=== PATIENT | female | born 1930 | race Caucasian/White ===

== ENCOUNTER 2019-04-27 22:12 | Observation (INO) | payer MEDICARE, OTHER ==
[~2019-04-27] VITALS: Ht 157.5 cm; Wt 55.5 kg
--- NOTE | ~2019-04-27 | HEMODYNAMI ---
PATIENT:ALPHONSO LEMUS MEDICAL RECORD: [id number] : [birth year] [facility] [id number] ADMISSION DATE: 04/28/19 Generatedon:04/28/201910:54 Patient name: ALPHONSO LEMUS Patient #: [id number] : 1930 Date of study: 04/28/2019 Page: Of Hemodynamic Procedure Report Patient Data Patient Demographics Procedure consent was obtained First Name: ALPHONSO Gender: Female Last Name: MARIAH : 1930 Patient #: [id number] Age: 88 year(s) Race: SSN: [id number] Additional ID: [id number] Contact details Address: [address] State: [place] City: [place] Zip code: [address] Past Medical History Allergies: No known allergies Admission Admission Data Admission Date: 04/28/2019 Admission Time: 0:13 Arrival Date: 04/28/2019 Arrival Time: 0:13 Admit Source: Other Insurance Payor: Medicare Room #: D.2115 Height (in.): 61.97 BSA: 1.55 (m2) Height (cm.): 157.4 BMI: 22.4 (kg/m2) Weight (lbs.): 122.36 Weight (kg.): 55.5 Lab Results Lab Result Date: 04/28/2019 Lab Result Time: 0:00 Biochemistry Name Units Result Min Max BUN mg/dl 24 --(----)-* 7 18 Creatinine mg/dl 0.9 --(-*--)-- 0.6 1.3 CBC Name Units Result Min Max Hemoglobin g/dl 11.4 *-(----)-- 13.5 17.5 Procedure Procedure Types Cath Procedure Diagnostic Procedure LHC LHC w/Coronaries FFR/IVUS FFR Initial FFR Additional Procedure Description Procedure Date Procedure Date: 04/28/2019 Procedure Start Time: 10:37 Procedure End Time: 10:51 Procedure Staff Name Function Sam Rice RT Scrub Agus Castillo MD Performing Physician Sebastian Connors RT Monitor Fercho Cao RN Nurse María Booth RT Scrub Procedure Data Cath Procedure Fluoroscopy Diagnostic fluoroscopy Total fluoroscopy Time: 3.1 time: 3.1 min min Diagnostic fluoroscopy Total fluoroscopy dose: 163 dose: 163 mGy mGy Contrast Material Contrast Material Type Amount (ml) Isovue 300 49 Entry Location Entry Primary Successful Side Size Upsize Upsize Entry Closure Lozano ccessful Closure Location (Fr) 1 (Fr) 2 (Fr) Remarks Device Remarks Radial Right 6 Fr Mechanical artery Short Compression Estimated blood loss: 5 ml Diagnostic catheters Device Type Used For End Catheter Placement DIAGNOSTIC [place] 110cm 5 Procedure Fr catheter ([id number]) Procedure Complications No complications Procedure Medications Medication Administration Route Dosage 0.9% NaCl I.V. 100 ml/hr Oxygen etCO2 Nasal cannula 2 l/min Heparin Flush Bag added to field 2 bags (1000units/500ml NS) Lidocaine 2% added to field 20 Radial Cocktail added to field 1 syringe (Verapamil 2mg/Nitro 400mcg/Heparin 1500units) Versed I.V. 1 mg Fentanyl I.V. 50 mcg Radial Cocktail I.A. 1 syringe (Verapamil 2mg/Nitro 400mcg/Heparin 1500units) Hemodynamics Rest BSA: 1.55 (m2) HGB: 11.4 (g/dl) O2 Consumption: Estimated: 134.75 (ml/min) O2 Co nsumption indexed: Estimated:86.94 (ml/min/m) Heart Rate: 67 (bpm) Snapshots Pre Cath Intra NCS Post Cath Vital Signs Time Heart Resp SPO2 etCO2 NIBP Rhythm Pain Sedation Rate (ipm) (%) (mmHg) (mmHg) Status Level (bpm) 10:34:18 60 14 100 34.5 111/52(73) NSR 0 (11) 10(A) , No pain 10:36:54 69 13 100 0 97/52(78) NSR 0 (11) 10(A) , No pain 10:41:04 67 12 96 0 75/39(63) NSR 0 (11) 9(A) , No pain 10:45:03 60 15 100 39.1 85/41(67) NSR 0 (11) 9(A) , No pain 10:50:02 60 13 100 24.8 123/54(82) NSR 0 (11) 9(A) , No pain Medications Time Medication Route Dose Verified Delivered Reason Notes Effectiveness by by 10:30:11 0.9% NaCl I.V. 100 Buffie Buffie Per ml/hr Barb Day RN physician 10:31:44 Oxygen etCO2 2 l/min Fercho Fercho for low 02 Nasal Lorigan Lorigan sats cannula RN RN 10:31:58 Heparin Flush added 2 bags Fercho Fercho used for Bag to Lorigan Lorigan procedure (1000units/500ml field RN RN NS) 10:32:07 Lidocaine 2% added 20ml Fercho Fercho for local to vial Lorigan Lorigan anesthetic field RN RN 10:32:24 Radial Cocktail added 1 Fercho Fercho used for (Verapamil to syringe Lorigan Lorigan procedure 2mg/Nitro field RN RN 400mcg/Hepari 10:38:03 Versed I.V. 1 mg Fercho Fercho for sedation Kiley Cao RN RN 10:38:31 Fentanyl I.V. 50 mcg Fercho Fercho for sedation Kiley Cao RN RN 10:38:47 Radial Cocktail I.A. 1 Fercho Agus for (Verapamil syringe Kiley Castillo MD vasodilation 2mg/Nitro RN 400mcg/Heparin 1500units) Procedure Log Time Note 9:17:07 Informed consent obtained and on chart 9:18:38 Admit Source: Other 9:18:46 Arrival Date: 04/28/2019 12:13:00 AM 9:18:56 Insurance Payor : Medicare 9:19:15 Patient Height : 61.97 inches 9:19:28 Patient Weight : 122.36 lbs 9:19:55 Lab Result : Hemoglobin 11.4 g/dl 9:19:55 Lab Result : Creatinine 0.9 mg/dl 9:19:55 Lab Result : BUN 24 mg/dl 9:20:55 ACC Patient presents with Unstable Angina CCS Anginal Class 4--Inability to carry out any physical activity w/o angina. Angina may occur at rest. 9:20:58 ACCPatient has been prescribed/administered the following anti-anginal medication within the last 2 weeks: Long-Acting Nitrates 9:21:03 Procedure Status Urgent Heart Cath (IP). 9:21:48 Sam Rice RT(R) sent for patient. Start room use. 9:21:49 Time tracking: Regular hours (M-F 7:00 - 5:00) 9:22:06 Plan of Care:Hemodynamics will remain stable., Cardiac rhythm will remain stable., Comfort level will be maintained., Respiratory function will remain adequate., Patient/ family verbilizes understanding of procedure., Procedure tolerated without complication., Recovers from procedure without complications.. 10:17:38 Patient received from Med II to CCL 1 Alert and oriented. Tansferred to table in Supine position. 10:17:39 Warm blankets applied, and cachorro hugger turned on for patient comfort. 10:17:40 Correct patient and procedure confirmed by team. 10:17:41 ECG and BP/O2 sat monitors applied to patient. 10:17:51 H&P Date Dictated: 04/28/2019 Within 30 days and on chart.. 10:17:52 Pre-procedure instructions explained to patient. 10:17:53 Pre-op teaching completed and patient verbalized understanding. 10:17:58 Family in patients room. 10:18:00 Patient NPO since Midnight. 10:18:09 Patient allergic to No known allergies 10:18:14 Is the patient allergic to Iodine/contrast media? No. 10:18:17 Is patient on blood thinner?No 10:18:18 Patient diabetic? No. 10:18:23 Previous problem with sedation/anesthesia? No ? 10:18:25 Snore? Yes 10:18:26 Sleep apnea? No 10:18:27 Deviated septum? No 10:18:28 Sticks out tongue? Yes 10:18:28 Opens mouth fully? Yes 10:18:30 Airway obstruction? No ? 10:18:35 Dentures? Yes top in bottom out 10:30:11 0.9% NaCl 100 ml/hr I.V. was administered by Ryan Day RN; Per physician; 10:31:44 Oxygen 2 l/min etCO2 Nasal cannula was administered by Fercho Cao RN; for low 02 sats; 10:31:58 Heparin Flush Bag (1000units/500ml NS) 2 bags added to field was administered by Fercho Cao RN; used for procedure; 10:32:07 Lidocaine 2% 20ml vial added to field was administered by Fercho Cao RN; for local anesthetic; 10:32:24 Radial Cocktail (Verapamil 2mg/Nitro 400mcg/Heparin 1500units) 1 syringe added to field was administered by Fercho Cao RN; used for procedure; 10:32:51 Pre procedure: right posterior tibial pulse 1+ Palpable, but thready & weak; easily obliterated 10:33:40 Baseline sample Acquired. 10:33:44 Rhythm: sinus rhythm 10:35:41 Vital chart was started 10:36:11 Baseline sample Acquired. 10:36:11 Full Disclosure recording started 10:36:16 Patient pain scale 0/10 ?. 10:36:21 IV patent on arrival in left wrist with 0.9% NaCl at [facility]. 10:36:23 Lab results completed and on chart. 10:36:26 Right Radial & Right Groin area was prepped with chlora-prep and draped in sterile fashion 10:36:27 Alarms reviewed by R. N. 10:36:28 Sharps counted by scrub and verified by R.N. 10:36:30 Use device set Radial Dx or PCI 10:36:31 ACIST Syringe (36651) opened to sterile field. 10:36:31 Medline Cath Pack ([id number]) opened to sterile field. 10:36:31 Bag Decanter (2002) opened to sterile field. 10:36:32 ACIST Hand Control (44486) opened to sterile field. 10:36:32 ACIST Manifold (12917) opened to sterile field. 10:36:32 Tegaderm 4 x 4 (1626W) opened to sterile field. 10:36:33 MBrace Wrist Support ([id number]) opened to sterile field. 10:36:36 SHEATH 6FR RAIN (6583457) opened to sterile field. 10:36:36 EMERALD Guide Wire (344-410) opened to sterile field. 10:36:42 Physician arrived 10:36:42 --------ALL STOP TIME OUT------ 10:36:43 Final Timeout: patient, procedure, and site verified with staff and physician. All members of the team are in agreement. 10:36:45 Right Radial & Right Groin site verified by team. 10:36:48 Fire Safety Assessment: A--An alcohol-based skin anteseptic being used preoperatively., C--Open oxygen or nitrous oxide is being used., D--An ESU, laser, or fiber-optic light is being used. 10:37:12 Physical assessment completed. ASA score P 2 - A patient with mild systemic disease as per Agus Castillo MD. 10:37:16 2) 60-89 Mildly reduced kidney function, and other findings (as for stage 1) point to kidney disease. 10:37:20 Maximum allowable contrast dose (3.7 X eGFR X 0.75)172 ml. 10:37:23 Sedation plan: IV Moderate Sedation Medication:Versed, Fentanyl 10:37:26 Procedure started. 10:37:31 Local anesthetic to right radial artery with Lidocaine 2% by Agus Castillo MD.INITIAL ACCESS ONLY 10:37:40 A 6 Fr Short sheath was inserted into the Right Radial artery 10:37:47 Zero performed for pressure channel P1 10:38:03 Versed 1 mg I.V. was administered by Fercho Cao RN; for sedation; 10:38:07 A DIAGNOSTIC [place] 110cm 5 Fr catheter (581918) was advanced over the wire and used for Procedure. 10:38:31 Fentanyl 50 mcg I.V. was administered by Fercho Cao RN; for sedation; 10:38:47 Radial Cocktail (Verapamil 2mg/Nitro 400mcg/Heparin 1500units) 1 syringe I.A. was administered by Agus Castillo MD; for vasodilation; 10:39:42 LV gram done using SERRANO 10:39:44 Injector settings: Ml/sec: 5, Volume: 15, 10:39:45 LV hemodynamics recorded. 10:39:49 EF : 55 % 10:39:54 LCA angiography performed. 10:40:40 RCA angiography performed. 10:41:33 Catheter removed. 10:41:49 Cantril Verrata Plus pressure wire (10657N) opened to sterile field. 10:41:49 INFLATOR Merit BasixCompak (ZQ7818) opened to sterile field. 10:41:50 GUIDE 6FR XBLAD 3.5 catheter ([id number]) opened to sterile field. 10:42:07 ACCDominant side:Co-Dominant 10:42:19 6 Fr xblad 3.5 guide catheter was inserted over the wire 10:42:22 FFR/IFR wire advanced. 10:44:46 Wire advanced across lesion. 10:45:14 pLAD lesion measured at 0.97 with IFR 10:45:25 Wire redirected to cx. 10:46:56 pCirc lesion measured at 1.04 with IFR 10:48:29 Wire removed. 10:48:30 Guide catheter removed. 10:48:36 ZEPHYR REGULAR TR BAND (857929) opened to sterile field. 10:48:43 Sheath removed intact; hemostasis achieved with Mechanical Compression to the Right Radial artery. 10:48:44 Procedure ended.(Physican Out) 10:49:58 Fluoroscopy time 03.10 minutes. 10:50:01 Fluoroscopy dose: 163 mGy 10:50:01 Flurop Dose total: 163 10:50:06 Dose Area Product 7349 mGy/cm. 10:50:10 Contrast amount:Isovue 300 49ml. 10:50:12 Maximum allowable dose exceeded? No. 10:50:13 Sharps counted by scrub and verified by R.N. 10:50:15 [place] band inflated with 12cc of air. 10:50:16 Insertion/operative site no bleeding no hematoma. 10:50:39 Post right radial artery:stable, soft, clean and dry 10:50:40 Post Procedure Pulses reassessed and unchanged 10:50:44 Post-procedure physical assessment completed. ASA score P 2 - A patient with mild systemic disease as per Agus Castillo MD. 10:50:46 Post procedure rhythm: unchanged. 10:50:49 Estimated blood loss: 5 ml 10:50:50 Post procedure instruction explained to patient.Patient verbalizes understanding. 10:50:50 Patient needs reinforcement of post procedure teaching. 10:51:00 Procedure type changed to Cath procedure, Diagnostic procedure, LHC, LHC w/Coronaries, FFR/IVUS, FFR Initial, FFR Additional 10:51:17 Procedure and supply charges have been captured, reviewed, submitted and are correct. 10:51:20 Procedure Complication : No complications 10:51:22 Vital chart was stopped 10:51:22 See physician's report for complete and final results. 10:51:23 Report given to Pre/Post Procedure Room. 10:51:26 Patient transfered to Pre/Post Procedure Room with Stretcher. 10:51:29 Procedure ended. 10:51:29 Full Disclosure recording stopped 10:52:28 End room use (Document Last) Device Usage Item Name Manufacture Quantity Catalog Hospital Part Current Mini mal Lot# / Number Charge Number Stock Stock Serial# Code ACIST Acist 1 08096 115757 519227 [id number] 20 Syringe Medical (21655) Systems Inc Medline Medline 1 [id number] [id number] 23003 [id number] 5 Cath Pack (GMMC49223) Bag Microtek 1 2001S 574598 83651 303119 5 Decanter Medical Inc. (2001S) ACIST Hand Acist 1 59064 480050 455622 788654 5 Control Medical (49725) Systems Inc ACIST Acist 1 03980 771092 784230 103421 5 Manifold Medical (55888) Systems Inc Tegaderm 4 3M 1 1626W 294315 613403 999227 5 x 4 (1626W) MBrace Advanced 1 140-0250-00 667488 31379 889073 5 Wrist Vascular Support Dynamics (762080961) SHEATH 6FR Cardinal 1 9977985 905585 0701368 769566 5 [facility] Health (3537920) EMERALD Cardinal 1 502455 447225 850538 209824 5 Guide Wire Health (502-990) DIAGNOSTIC Terumo 1 40-6503 364456 565497 248041 5 [place] 110cm 5 Fr catheter (575897) Cantril Cantril 1 97529R 537496 [id number] 551084 5 Verrata Plus pressure wire (15837J) INFLATOR Merit 1 RD0910 545657 222010 404124 15 [facility] BasixCompak (RD6270) GUIDE 6FR Cardinal 1 [id number] 800840 300810 871815 10 XBLAD 3.5 Health catheter (38842933) ZEPHYR Cardinal 1 894425 323848 1026188 919211 5 REGULAR TR Health BAND (793439) Signature Audit [place] Stage Time Signature Unsigned Intra-Procedure 04/28/2019 Sebastian Connors 10:54:46 AM RT(R) Signatures Performing Physician : Signature : Agus Castillo MD Date : Time : Monitor : Sebastian Connors RT Signature : Date : Time : Nurse : Fercho Lorigan Signature : RN Date : Time : [address] [place] [address]
[2019-04-27 22:59] LABS: BASOPHILS 0.3 % (0-2); EOSINOPHILS 17.6 % (0-7); HEMATOCRIT 33.4 % (36.0-48.0); HEMOGLOBIN 11.4 g/dL (12-16); IMMATURE GRANULOCYTES 0.1 % (0-5); LYMPHOCYTES 25.2 % (15-50); MCH 28.2 pg (26.0-34.0); MCHC 34.1 g/dL (31.0-37.0); MCV 82.7 fL (80.0-100.0); MEAN PLATELET VOLUME 10.5 fL (7.4-10.4); MONOCYTES 9.9 % (2-11); NEUTROPHILS 46.9 % (40-80); PLATELET COUNT 246 10x3/uL (130-400); RBC 4.04 10x6/uL (4.00-5.40); RDW 14.7 % (11.5-14.5); WBC 10.1 10x3/uL (4.8-10.8)
[2019-04-27 23:11] LABS: INR 0.99 (0.85-1.17); PROTIME 12.6 SECONDS (11.6-15.0)
[2019-04-27 23:15] LABS: ALBUMIN 3.7 g/dL (3.4-5.0); ALKALINE PHOSPHATASE 96 U/L (46-116); ALT (SGPT) 24 U/L (10-68); BILIRUBIN - TOTAL 0.31 mg/dL (0.2-1.3); CALC OSMOLALITY 284 mosm/kg (275-300); CALCIUM 8.8 mg/dL (8.5-10.1); CARBON DIOXIDE 29.6 mmol/L (21.0-32.0); CHLORIDE - SERUM 102 mmol/L (98-107); CREATININE - SERUM 0.9 mg/dL (0.6-1.3); GLUCOSE 107 mg/dL (74-106); POTASSIUM - SERUM 3.8 mmol/L (3.5-5.1); PROTEIN - SERUM 7.4 g/dL (6.4-8.2); SODIUM 141 mmol/L (136-145); UREA NITROGEN 24 mg/dL (7-18); eGFR NON AFRICAN AMERICAN 62 mL/min (90-120)
[2019-04-27 23:25] LABS: CREATINE KINASE 175 UL (21-215); MAGNESIUM - SERUM 1.8 mg/dL (1.8-2.4); TROPONIN-I < 0.017 ng/mL (0.000-0.060)
[2019-04-27 23:46] LABS: APPEARANCE CLEAR (CLEAR); BILIRUBIN NEGATIVE (NEGATIVE); COLOR STRAW (YELLOW); GLUCOSE NEGATIVE (NEGATIVE); KETONE NEGATIVE (NEGATIVE); NITRITE NEGATIVE (NEGATIVE); PROTEIN NEGATIVE (NEGATIVE); SPECIFIC GRAVITY 1.005 (1.005-1.020); UROBILINOGEN NORMAL (NORMAL)
[2019-04-27 23:49] LABS: BACTERIA FEW /hpf (NONE SEEN); EPITHELIAL CELLS 0-5 /hpf (0-5); RED CELLS - URINE NONE SEEN /hpf (0-5); WHITE CELLS - URINE 0-5 /hpf (0-5)
[2019-04-28] MEDS ORDERED: BAYER CHEWABLE81 MG PO (01:46)
[2019-04-28 01:55] VITALS: BP 170/83; BMI 22.4
[2019-04-28] MEDS ORDERED: NORVASC5 MG PO (02:04)
[2019-04-28 04:00] VITALS: BP 137/64
[2019-04-28 07:11] LABS: CKMB 3.7 U/L (0.0-3.6); CREATINE KINASE 172 UL (21-215)
[2019-04-28 07:12] LABS: TROPONIN-I < 0.017 ng/mL (0.000-0.060)
[2019-04-28 08:20] VITALS: BP 147/73
--- NOTE | 2019-04-28 10:53 | HP ---
PATIENT: ALPHONSO CLAYTON MEDICAL RECORD: [id number] ACCOUNT: [id number] LOCATION:[address] : [birth year] ADMISSION DATE: 04/28/19 PCP: CONSTANCE BOYD MD HISTORY AND PHYSICAL EXAMINATION DIAGNOSES: 1. Unstable angina. 2. Hypertension. HISTORY OF PRESENT ILLNESS: Mrs. Clayton has no previous cardiac history. Her has extensive coronary artery disease. She has been having chest pain over the past few days. She has been taking multiple of his sublingual nitro as it does relieve the pain; however, comes back. She has class IV pain at rest. She presented to the [facility] after multiple sublingual nitro, did not relieve the pain. She is on a nitropatch. She does have pain relief at this time; however, she has continued to have recurrences of it. She is on Norvasc at home, now on a nitro patch. She is anxious and she is tachycardic and hypertensive. She is usually with good blood pressure control with Norvasc. Her EKG is with no acute ST-T abnormalities. PHYSICAL EXAMINATION: CONSTITUTIONAL/GENERAL APPEARANCE: Well nourished, well developed, appears stated age. EYES: Lids and conjunctivae noninjected. No discharge. No pallor. ENT: Lips within normal limit. No cyanosis. No pallor. NECK: Carotid arteries, bilateral normal upstroke. No bruits. No thrills. No jugular venous pressure or distention. CERVICAL LYMPH NODES: Nontender. Nonenlarged. THYROID: Not enlarged. No nodules. CARDIOVASCULAR: Precordial exam, nondisplaced. No heaves or pericardial thrills. Rate and rhythm, regular. Heart sounds, normal S1, normal S2. No S3, no gallop, no rub. Systolic murmur, not heard. Diastolic murmur, not heard. RESPIRATORY: Respiratory effort, unlabored. Normal curvature. No thoracic deformity. No chest wall tenderness. Percussion, resonant. Auscultation, clear. No wheezes, no rales, no rhonchi. ABDOMEN: Soft, nondistended, nontender. No abdominal pain, no vomiting and normal appetite. MUSCULOSKELETAL: No joint tenderness, normal gait, normal tone. SKIN: Warm and dry. OVERALL IMPRESSION: Typical anginal symptomatology class IV pattern with pain at rest, relieved with sublingual nitro with recurrences of it. At this time, we will beta blockade her with Lopressor for maximal medical therapy with long-acting nitrates, calcium channel edie, and beta edie if we achieve optimal heart rate and blood pressure status, but she continues to have chest discomfort, would consider coronary angiography. If she becomes pain free and remains pain free, we will consider risk stratification with stress testing and Cardiolite imaging. TRANSINT:[id number] Voice Confirmation ID: [id number] DOCUMENT ID: [id number] HISTORY AND PHYSICAL [id number] ALPHONSO CLAYTON JEFFREY MD at 1053 CC: [id number] DICTATION DATE: 04/28/19 0233 PLASTIC SURGERY NURSE: 04/28/19 0307 ADM IN [facility] [address] [place] [address]
[2019-04-28] MEDS ORDERED: METOPROLOL TART50 MG PO (11:18)
[2019-04-28 12:27] VITALS: Ht 157.5 cm; Wt 55.5 kg
--- NOTE | 2019-05-05 14:31 | OP ---
PATIENT NAME: ALPHONSO LEMUS MEDICAL RECORD: [id number] :[birth year] LOCATION:[facility] ADMISSION DATE:04/28/19 SURGEON: ESA DELA CRUZ MD DATE OF OPERATION: 04/28/2019 PROCEDURES: 1. Left heart catheterization. 2. Selective coronary angiography. 3. Left ventriculogram. 4. IFR left circumflex. 5. IFR LAD. INDICATION: Angina and coronary artery disease. PROCEDURE IN DETAIL: After informed consent was obtained and after a detailed description of the risks, benefits as well as alternative therapies, the patient elected to proceed with angiogram and heart catheterization. The right radial area was prepped and draped in normal sterile fashion. Right radial artery was cannulated via modified Seldinger technique with placement of 6-Arabic sheath. All catheters exchanged through this sheath. FINDINGS: Left ventriculogram was performed in a standard 30-degree SERRANO view, reveals good cardiac wall motion, ejection fraction is 60%. SELECTIVE CORONARY ANGIOGRAPHY: 1. Left main is with no significant angiographic disease. 2. Left anterior descending has a questionable stenosis in the mid vessel; however, IFR was normal. 3. Left circumflex has a questionable ostial stenosis; however, IFR was normal. 4. Right coronary has moderate irregularities, but no flow-limiting stenosis. OVERALL IMPRESSION: Minimal coronary artery disease is present. No flow-limiting stenosis. Center medical management and treatment of the tachycardia and hypertension. TRANSINT:[id number] Voice Confirmation ID: [id number] DOCUMENT ID: [id number] ESA DELA CRUZ MD at 1431 CC: [id number] DICTATION DATE: 04/28/19 1052 COMMUNITY EDUCATION SPECIALIST: 04/28/19 1149 DIS IN 04/28/19 [place] [id number] [place] [id number]
--- NOTE | 2019-05-05 14:31 | EC ---
PATIENT:ALPHONSO LEMUS DATE OF SERVICE: 04/28/19 SEX: F MEDICAL RECORD: [id number] DATE OF : [birth year] [facility] AGE [facility] PAT[facility]: 88 ADMISSION DATE: 04/28/19 REFERRING PHYSICIAN: INTERPRETING PHYSICIAN: ESA CASTILLO MD ECHOCARDIOGRAM REPORT ECHO CHARGES 4 ECHO COMPLETE Date: 04/28/19 CLINICAL DIAGNOSIS: CHEST PAIN ECHOCARDIOGRAPHIC MEASUREMENTS (adult normal given) AC root (d.<3.7cm) 2.4 cm LV Septum d (<1.2 cm> 0.9 cm Valve Excursion 1.3 cm LV Septum (systole) 1.2 cm Left Atria (s.<4.0cm> 2.7 cm LVPW d(<1.2cm) 0.6 cm RV (d.<2.3cm) 2.1 cm LVPW (sytole) 0.9 cm LV diastole(<5.6CM) 3.9 cm MV E-F(>70mm/sec) cm LV systole 2.7 cm LVOT Diameter 1.5 cm MV exc.(>10mm) cm Est.ejection fraction (50-75%) % DOPPLER: LVIT cm/sec A 97 cm/sec E 72 cm/sec LA cm/sec RVSP 25.9 mmHg LVOT 85 cm/sec AOP1/2T m/s Asc. Ao 130 cm/sec RVOT 55 cm/sec RA cm/sec PA 90 cm/sec AV Gradient Peak 6.8 mmHg AV Mean 3.8 mmHg AV Area 0.9 cm MV Gradient Peak 6.1 mmHg MV Mean 3.6 mmHg MV Area cm COMMENTS: Metal Machinist: Lay SOW Sanitary Inspector: 1 Dr. Castillo TAPE# PACS Pericardial Effusion N DATE OF SERVICE: 04/28/2019 FINDINGS: 1. Left ventricular chamber size is within normal limits. Left ventricular systolic function lower limits of normal at 45% to 50%. 2. Left atrium, right atrium, and right ventricular chamber sizes are within normal limits. 3. Valvular structures have normal structure and motion. 4. Doppler interrogation reveals mild mitral regurgitation, mild tricuspid regurgitation, no other valvular insufficiency or stenosis. Pulmonary systolic ECHOCARDIOGRAM REPORT [id number] ALPHONSO LEMUS pressure is estimated at 26 mmHg. 5. No evidence of pericardial effusion or left ventricular thrombus. TRANSINT:[id number] Voice Confirmation ID: [id number] DOCUMENT ID: [id number] ESA CASTILLO MD at 1431 CC: [id number] DICTATION DATE: 04/28/19 1548 DIRECTOR OF EMAIL MARKETING: 04/28/19 2257 DIS IN 04/28/19 [place] [id number] [place] [id number]
--- NOTE | 2019-05-05 14:31 | DS ---
PATIENT:ALPHONSO CLAYTON :[birth year] MEDICAL RECORD: [id number] DISCHARGE SUMMARY ADMISSION DATE: 04/28/19 DISCHARGE DATE: 04/28/19 DISCHARGE DIAGNOSES: 1. Hypertension. 2. Tachycardia. 3. Unstable angina. 4. Coronary artery disease. HOSPITAL COURSE: Mrs. Clayton presents with unstable anginal symptomatology, found to be significantly tachycardic and hypertensive, started on Lopressor. Continue to have symptomatology, underwent cardiac catheterization revealing mild coronary artery disease, but no flow limiting stenosis. Discharged home with the addition of Lopressor 100 mg b.i.d. to her Norvas. We will follow up with [facility] on a p.r.n. basis. Follow up with her primary care physician for blood pressure recheck. TRANSINT:[id number] Voice Confirmation ID: [id number] DOCUMENT ID: [id number] ESA DELA CRUZ MD at 1431 CC: [id number] DICTATION DATE: 04/28/19 1051 YARD COUPLER: 04/29/19 0028 DIS IN 04/28/19 [place] [id number] [place] [address]
== END 2019-04-28 13:30 | disposition home or self-care (01) ==
LOC: D.ER 22:12 → D.M2 04-28 00:13 → OBSVTIME 04-28 00:13 → D.M2 04-28 00:13 → D.SDCHOLD 04-28 08:47 → D.CLR 04-28 11:07
PROVIDERS: Emergency Medicine; ADMIT Internal Medicine Interventional Cardiology; ATTEND Internal Medicine Interventional Cardiology
DX: I25.110 Atherosclerotic heart disease of native coronary artery with unstable angina pectoris (principal); I10 Essential (primary) hypertension; R00.0 Tachycardia, unspecified